=== PATIENT | male | born 1980 | race Caucasian/White ===

== ENCOUNTER → 2018-03-05 | Outpatient (CLI) | payer OTHER ==
[2018-03-05 18:15] LABS: T4, Free (Free Thyroxine) 0.7 ng/dL (0.78-2.19)
--- NOTE | 2018-03-05 19:22 | US ---
EXAMINATION TYPE: US thyroid st tissue head/neck DATE OF EXAM: 03/05/2018 COMPARISON: NONE CLINICAL HISTORY: R07.0 PAIN IN THROAT. GLAND SIZE: Right Lobe: 4.9 x 1.7 x 1.6 cm Overall Parenchyma: homogenous Left Lobe: 4.2 x 1.6 x 1.6 cm Overall Parenchyma: homogeneous Isthmus Thickness: 0.4 cm NODULES RIGHT: # of nodules measured on right: 0 LEFT: # of nodules measured on left: 0 ISTHMUS: # of nodules measured in the isthmus: 0 Bilateral neck scanned, no evidence of lymphadenopathy. IMPRESSION: 1. Normal thyroid scan. No suspicious nodules are evident.
[2018-03-06 02:07] LABS: Thyroid Peroxidase Antibodies 3556.5 U/mL (0.0-60.0)
== END | disposition home or self-care (01) ==
LOC: RADUSWWP 16:18
PROVIDERS: ATTEND Family Medicine
DX: R07.0 Pain in throat (principal); E06.9 Thyroiditis, unspecified; Z82.49 Family history of ischemic heart disease and other diseases of the circulatory system
CPT/HCPCS: 36415; 76536; 84432; 84439; 84443; 84481; 86376; 86800

== ENCOUNTER → 2018-03-18 | Outpatient (CLI) | payer OTHER ==
--- NOTE | 2018-03-18 18:12 | EST ---
EXERCISE STRESS DATE OF STUDY: 03/18/2018 INDICATION FOR STUDY: Chest pain. Abnormal EKG. AGE: 37 SEX: Male. HT: 70" WT: 220 pounds. PROTOCOL: Nader. STAGE: 4 DURATION OF EXERCISE: 10 minutes. HEART RATE REST: 64 BLOOD PRESSURE REST: 130/85 MAXIMUM HEART RATE ACHIEVED: 157 MAXIMUM BLOOD PRESSURE: 202/89 85% MPHR: 156 100% MPHR: 184 METS: 11.7 CLINICAL INFORMATION: STRESS DATA: Pre-testing physical examination showed a heart rate of 64, pressure 130/85 mmHg. Baseline EKG showed sinus mechanism. The patient exercised on the treadmill according to Nader protocol for a total of 10 minutes and achieved 11.7 METS. Maximum heart rate was 157, which is about 85% of maximum predicted heart rate. Maximum blood pressure was 202/89 mmHg. Clinically the patient did not have any symptoms of chest pain or discomfort during the testing or on recovery. The EKG did not show any significant ST or T-wave abnormalities consistent with ischemia. CONCLUSION: 1. Excellent exercise capacity. 2. Normal EKG in response to exercise. 3. Essentially normal stress test for the patient. MMODL / IJN: [id number] /
== END | disposition home or self-care (01) ==
LOC: RADNMMAIN 11:14
PROVIDERS: ATTEND Internal Medicine
DX: Z13.6 Encounter for screening for cardiovascular disorders (principal); Z82.49 Family history of ischemic heart disease and other diseases of the circulatory system
CPT/HCPCS: 93017

== ENCOUNTER 2021-03-16 15:00 | Emergency (ER) | payer OTHER ==
[2021-03-16 15:16] VITALS: BP 145/88; PULSE 89; RESP 18; TEMP 98.4
[2021-03-16] MEDS ORDERED: HYDROcodone/APAP 5-325MG 1 EACH TAB PO STA (15:27)
--- NOTE | 2021-03-16 15:35 | ED ---
Lower Extremity Injury HPI - General Chief Complaint: Extremity Injury, Lower Stated Complaint: L Leg Injury Time Seen by Provider: 03/16/21 15:20 Source: patient, RN notes reviewed Mode of arrival: wheelchair Limitations: physical limitation - History of Present Illness Initial Comments: 40-year-old white male, alert and oriented 4, presents with his to the emergency room with complaints of being hit with a large tree branch while trying to cut it down. Patient states the branch swung around and hit him in the left leg and ankle. Patient also has an abrasion to his left lateral lower leg. Patient states was able to ambulate for a few steps with increasing pain. Patient denies any other medical problems. Denies smoking or drinking on a daily basis. No drug use. MD Complaint: leg injury, ankle injury -: hour(s) (2) Injury: Leg: Left (lower, mid), Ankle: Left Type of Injury: blunt (hit with large swinging tree branch) Place: home Severity: severe (with movement or palpation) Severity scale (1-10): 10 Improves With: immobilization, rest Worsens With: movement, palpation Context: direct blow Associated Symptoms: swelling, able to partially bear weight Treatments Prior to Arrival: cold therapy - Related Data Previous Rx's Medication Instructions Recorded Ciprofloxacin HCl [Cipro] 500 mg PO Q12HR #20 day 07/08/16 Hydrocodone/Acetaminophen [Sturbridge 1 each PO Q6HR PRN #20 tab 07/08/16 5-325] Ondansetron Odt [Zofran ODT] 4 mg PO Q8HR PRN #15 tab 07/08/16 metroNIDAZOLE [Flagyl] 500 mg PO TID 7 Days tab 07/08/16 HYDROcodone/APAP 5-325MG [Sturbridge 1 tab PO Q4HR PRN 3 Days #18 tab 03/16/21 5-325] Allergies Allergy/AdvReac Type Severity Reaction Status Date / Time No Known Allergies Allergy Verified 03/16/21 15:12 Review of Systems ROS Statement: Those systems with pertinent positive or pertinent negative responses have been documented in the HPI. ROS Other: All systems not noted in ROS Statement are negative. Past Medical History Past Medical History: No Reported History History of Any Multi-Drug Resistant Organisms: None Reported Past Surgical History: No Surgical Hx Reported Past Psychological History: No Psychological Hx Reported Smoking Status: Never smoker Past Alcohol Use History: Occasional Past Drug Use History: None Reported General Exam Limitations: physical limitation General appearance: alert, in no apparent distress Head exam: Present: atraumatic, normocephalic, normal inspection Eye exam: Present: normal appearance, PERRL, EOMI. Absent: scleral icterus, conjunctival injection, periorbital swelling ENT exam: Present: normal exam, normal oropharynx, mucous membranes moist Neck exam: Present: normal inspection, full ROM. Absent: tenderness, meningismus, lymphadenopathy, thyromegaly Respiratory exam: Present: normal lung sounds bilaterally. Absent: respiratory distress, wheezes, rales, rhonchi, stridor, chest wall tenderness, accessory muscle use, decreased breath sounds Cardiovascular Exam: Present: regular rate, normal rhythm, normal heart sounds. Absent: systolic murmur, diastolic murmur, rubs, gallop, clicks GI/Abdominal exam: Present: soft, normal bowel sounds. Absent: distended, tenderness, guarding, rebound, rigid Left Hip exam: Present: full ROM Upper Leg exam: Present: full ROM Knee exam: Present: normal inspection, full ROM. Absent: tenderness, swelling, laceration, effusion Lower Leg exam: Present: tenderness, swelling, abrasion. Absent: deformity Ankle exam: Present: tenderness, swelling Foot/Toe exam: Present: full ROM. Absent: laceration, deformity Neurovascular tendon exam: Present: no vascular compromise. Absent: pulse deficit, abnormal cap refill, sensory deficit, extremity cold to touch, pallor, abnormal 2-point discrimination, decreased fine/light touch, foot drop, significant pain with passive ROM of distal joint Back exam: Present: normal inspection, full ROM. Absent: tenderness, CVA tenderness (R), CVA tenderness (L) Neurological exam: Present: alert, oriented X3, CN II-XII intact Psychiatric exam: Present: normal affect, normal mood Skin exam: Present: warm, dry, intact, normal color. Absent: rash Course Vital Signs 03/16/21 15:13 Temperature 98.4 F Pulse Rate 89 Respiratory 18 Rate Blood Pressure 145/88 O2 Sat by Pulse 97 Oximetry Procedures - Orthopedic Splinting/Casting Injury #1 Side: left Lower Extremity Injury Location: short leg, ankle Lower Extremity Immobilizer: posterior splint, stirrup splint, synthetic pre- padded splint Medical Decision Making - Medical Decision Making left Medial malleolar fracture mildly displaced, no other fractures identified. Patient reports some pain relief with immobilization and Sturbridge. Neurovascularly intact after splint applied. Disposition Clinical Impression: Medial malleolar fracture Disposition: HOME SELF-CARE Condition: Good Instructions (If sedation given, give patient instructions): Leg Fracture (ED), Splint Care (ED) Additional Instructions: Follow-up with orthopedics in the next 7 days, take medication as needed for pain. Motrin [id number] as directed. Keep splint in place until seen by orthopedics. Return if any numbness, tingling, or increased pain Prescriptions: HYDROcodone/APAP 5-325MG [Sturbridge 5-325] 1 tab PO Q4HR PRN 3 Days #18 tab PRN Reason: Pain Is patient prescribed a controlled substance at d/c from ED?: Yes When asked, does pt state using other controlled substances?: No If prescribed controlled substance>3 days was MAPS reviewed?: Prescribed <3 Days If opioid is for acute pain is fill amount 7 days or less?: Yes If Rx opioid, was Start Talking consent form obtained?: Yes Referrals: Teena Kyle MD [STAFF PHYSICIAN] - 1-2 days Yaya Hunter DO [Doctor of Osteopathic Medicine] - 1-2 days Time of Disposition: 17:05
--- NOTE | 2021-03-16 16:01 | XR ---
Left leg and left ankle HISTORY: Trauma and pain Frontal and lateral views of the left leg on 3 images, 3 views the left ankle, no comparisons There is a mildly displaced medial malleolar fracture, associated soft tissue swelling. No evident di slocation. There is a plantar calcaneal spur. IMPRESSION: Medial malleolar fracture is mildly displaced.
== END 2021-03-16 17:20 | disposition home or self-care (01) ==
LOC: EC 15:00
DX: S82.52XA Displaced fracture of medial malleolus of left tibia, initial encounter for closed fracture (principal); W22.8XXA Striking against or struck by other objects, initial encounter
CPT/HCPCS: 29515; 99283

== ENCOUNTER 2022-02-21 09:16 | Day surgery (SDC) | payer OTHER ==
[2022-02-19 16:14] VITALS: BMI 30.1
[~2022-02-21 09:16] MED LIST: LACTATED RINGERS 1,000 ML IV SCH; LIDOCAINE 1% (10MG/ML) FOR IV START INTRADERMA PRN
[2022-02-21 10:17] VITALS: RESP 16; TEMP 97.8
[2022-02-21] MEDS ORDERED: PROPOFOL 10 MG/ML 20 ML VIAL IV ONE (11:15)
--- NOTE | 2022-02-21 11:19 | P.GSHP ---
History of Present Illness H&P Date: 02/21/22 Chief Complaint: History of colon polyps This a 41-year-old male who's had previous history of colon polyps. Patient had. His colonoscopy approximately 5 years ago. This was then another institution. Patient states he polyps that time. Anus GI complaints. Past Medical History Past Medical History: GERD/Reflux Additional Past Medical History / Comment(s): frequent, loose stools, intermittent abd. pain History of Any Multi-Drug Resistant Organisms: None Reported Past Surgical History: Orthopedic Surgery Additional Past Surgical History / Comment(s): ORIF left ankle area Past Anesthesia/Blood Transfusion Reactions: No Reported Reaction Smoking Status: Never smoker Medications and Allergies Home Medications Medication Instructions Recorded Confirmed Type Omeprazole [PriLOSEC] 20 mg PO BID 02/19/22 02/21/22 History Allergies Allergy/AdvReac Type Severity Reaction Status Date / Time No Known Allergies Allergy Verified 02/21/22 10:10 Surgical - Exam Vital Signs Temp Pulse Resp BP Pulse Ox 97.8 F 63 16 130/81 96 02/21/22 10:16 02/21/22 10:16 02/21/22 10:16 02/21/22 10:16 02/21/22 10:16 - General well developed, well nourished, no distress - Eyes PERRL - ENT normal pinna - Neck no masses - Respiratory normal expansion - Cardiovascular Rhythm: regular - Abdomen Abdomen: soft, non tender Assessment and Plan Assessment: History of colon polyps. We'll perform colonoscopy.
--- NOTE | 2022-02-21 11:32 | P.OP ---
Date of Procedure: 02/21/22 Preoperative Diagnosis: History of colon polyps Postoperative Diagnosis: Normal colon Procedure(s) Performed: Colonoscopy Anesthesia: MAC Surgeon: Yang Benavidez Pathology: none sent Condition: stable Disposition: PACU Description of Procedure: Patient's placed on the endoscopy table in the lateral position. He received IV sedation. Digital rectal exam was performed. This revealed no normality's. The prostate was symmetric without nodules. The flexible colonoscope was then placed patient anus and passed throughout the entire colon. The ileocecal valve was visualized. Cecum, ascending and transverse colon appeared normal. The descending and sigmoid colon appeared normal. There were no polyps seen throughout the colon. Scope was brought back the rectum. This appeared normal. Scope withdrawn for patient.
[2022-02-21] MEDS ORDERED: IV FLUID CONTINUATION 1,000 ML IV ONE (11:34)
[2022-02-21 11:49] VITALS: BP 110/79; PULSE 60
== END 2022-02-21 12:17 | disposition home or self-care (01) ==
LOC: ORWHC2ENDO 09:16
PROVIDERS: ATTEND Surgery
DX: R19.7 Diarrhea, unspecified (principal); R10.9 Unspecified abdominal pain; Z86.010 Personal history of colon polyps; K21.9 Gastro-esophageal reflux disease without esophagitis; Z79.899 Other long term (current) drug therapy
CPT/HCPCS: 45378; J2704

== ENCOUNTER → 2022-10-09 | Outpatient (CLI) | payer OTHER ==
--- NOTE | 2022-10-09 13:06 | MR ---
EXAMINATION TYPE: MR shoulder LT wo con DATE OF EXAM: 10/09/2022 11:02 AM COMPARISON: NONE HISTORY: Pain Lt shoulder TECHNIQUE: Multiplanar multispin echo imaging of the left shoulder was performed. FINDINGS: Rotator cuff : There is thickening and heterogeneity of the supraspinatus tendon compatible with mild chronic tendinopathy. There is no complete or bursal/articular sided partial rotator cuff tear. The subscapularis constituent of the rotator cuff is intact. Bursa: No bursal effusion or thickening is seen. Musculature: There is no muscular tear, contusion, or atrophy. Acromioclavicular joint : Small subacromial spur is noted without significant impingement. There are mild degenerative changes of the acromioclavicular joint. There is no anterior or lateral acromial d ownsloping. Osseous structures : There are no fractures or regions of abnormal bone marrow signal intensity. Long biceps tendon : The biceps tendon is normally situated within the bicipital groove. No complete or partial biceps tendon tear is present. Glenohumeral Joint fluid : There is no glenohumeral joint effusion. Cartilage and Bone : No focal hyaline cartilage defects are noted. No Hill-Sachs, reverse Hill-Sachs, or bony Bankart lesions are seen. Labrum : There are no SLAP or soft tissue Bankart lesions. No paralabral cysts are seen. OTHER FINDINGS : none IMPRESSION: 1. Mild chronic tendinopathy of the supraspinatus tendon.
== END | disposition home or self-care (01) ==
LOC: RADMRIMAIN 10:30
PROVIDERS: ATTEND Orthopaedic Surgery
DX: M75.42 Impingement syndrome of left shoulder (principal); M25.512 Pain in left shoulder; M62.81 Muscle weakness (generalized)

== ENCOUNTER → 2023-11-18 | Outpatient (CLI) | payer OTHER ==
[2023-11-18 13:01] LABS: INR 0.9 (<1.2); Partial Thromboplastin Time 24.8 sec (22.0-30.0)
--- NOTE | 2023-11-18 13:29 | XR ---
EXAMINATION TYPE: XR chest 2V DATE OF EXAM: 11/18/2023 12:34 PM CLINICAL INDICATION:Male, 43 years old with history of Z01.818 PRE OP; H COMPARISON: None TECHNIQUE: XR chest 2V Frontal and lateral views of the chest. FINDINGS: Lungs/Pleura: There is no evidence of pleural effusion, focal consolidation, or pneumothorax. Pulmonary vascularity: Unremarkable. Heart/mediastinum: Cardiomediastinal silhouette is unremarkable. Musculoskeletal: No acute osseous pathology. IMPRESSION: No acute cardiopulmonary disease/process.
[2023-11-18 15:28] LABS: Blood Urea Nitrogen 13.9 mg/dL (9.0-27.0); Calcium 10.1 mg/dL (8.7-10.3); Carbon Dioxide 26.3 mmol/L (21.6-31.8); Chloride 102 mmol/L (96-109); Glucose 125 mg/dL (70-110); Sodium 141 mmol/L (135-145)
[2023-11-18 15:34] LABS: Basophils # (A) 0.04 X 10*3/uL (0.00-0.10); Basophils % (A) 0.4 %; Eosinophils # (A) 0.16 X 10*3/uL (0.04-0.35); Eosinophils % (A) 1.6 %; HCT 45.1 % (39.6-50.0); HGB 16.2 g/dL (13.0-17.0); Lymphocytes # (A) 1.65 X 10*3/uL (0.90-5.00); MCH 30.3 pg (27.0-32.0); MCHC 35.9 g/dL (32.0-37.0); MCV 84.3 FL (80.0-97.0); Mean Platelet Volume 10.1 FL (9.5-12.2); Monocytes % (A) 5.8 %; NRBC Per 100 WBC 0 X 10*3/uL (0.00-0.01); Neutrophils # (A) 7.78 X 10*3/uL (1.80-7.70); Neutrophils % (A) 75.6 %; Platelet Count 280 X 10*3/uL (140-440); RBC 5.35 X 10*6/uL (4.40-5.60); RDW 11.9 % (11.5-14.5); WBC 10.29 X 10*3/uL (4.50-10.00)
[2023-11-18 15:56] LABS: Appearance,Urine Clear (Clear); Bilirubin,Urine Negative (Negative); Blood,Urine Negative (Negative); Color,Urine Yellow (Yellow); Ketones,Urine Negative (Negative); Nitrite,Urine Negative (Negative); PH, Urine 6.5
== END | disposition home or self-care (01) ==
LOC: LABPAT 11:18
PROVIDERS: ATTEND Orthopaedic Surgery Orthopaedic Surgery of the Spine
DX: Z01.818 Encounter for other preprocedural examination (principal); M43.16 Spondylolisthesis, lumbar region
CPT/HCPCS: 71046; 80048; 81003; 85025; 85610; 85730; 86850; 86900; 86901; 87070; 93005

== ENCOUNTER 2023-11-26 06:18 | Observation (INO) | payer OTHER ==
[~2023-11-26 06:18] MED LIST changes: -LACTATED RINGERS 1,000 ML IV SCH; -LIDOCAINE 1% (10MG/ML) FOR IV START INTRADERMA PRN; +ceFAZolin 1,000 MG in SODIUM CHLORIDE 0.9% IRRIGATIO 1,000 ML IRRIGATION PRN
[2023-11-26] MEDS ORDERED: LIDOCAINE 1% (10MG/ML) FOR IV START INTRADERMA PRN (06:30)
[2023-11-26] MEDS ORDERED: ONDANSETRON 4 MG/2 ML VIAL IVP ONE (06:30)
[2023-11-26] MEDS: LACTATED RINGERS 1,000 ML IV SCH (07:13)
[2023-11-26] MEDS ORDERED: ROCURONIUM 10 MG/ML (5 ML VIAL) IV ONE (07:35)
[2023-11-26] MEDS ORDERED: NEOSTIGMINE 1 MG/ML 10 ML VIAL ONE (07:35)
[2023-11-26] MEDS ORDERED: PROPOFOL 10 MG/ML 20 ML VIAL IV ONE (07:35)
[2023-11-26] MEDS ORDERED: GLYCOPYRROLATE 0.2 MG/ML 2 ML VIAL ONE (07:35)
[2023-11-26] MEDS ORDERED: MIDAZOLAM 2 MG/2 ML VIAL ONE (07:35)
[2023-11-26] MEDS ORDERED: fentaNYL (PF) 50 MCG/ML 2 ML AMP ONE (07:35)
[2023-11-26] MEDS ORDERED: PHENYLEPHRINE 10 MG/ML VIAL ONE (07:35)
[2023-11-26] MEDS ORDERED: SUCCINYLCHOLINE CHLORIDE 200 MG/10 ML VIAL IV ONE (07:35)
[2023-11-26] MEDS ORDERED: LIDOCAINE 1% INJ 10MG/ML (20 ML MDV) ONE (07:35)
[2023-11-26] MEDS ORDERED: SUGAMMADEX SODIUM 200 MG/2 ML SDV IV ONE (07:35)
[2023-11-26] MEDS ORDERED: THROMBIN (BOVINE) 5,000 UNIT VIAL MISCELLANE ONE (08:09)
[2023-11-26] MEDS ORDERED: GELATIN SPONGE,ABSORB (LARGE) 1 EACH SPONGE MISCELLANE ONE (08:09)
[2023-11-26] MEDS ORDERED: BUPIVACAINE (PF) 0.25% 10 ML VIAL SQ ONE (08:09)
[2023-11-26] MEDS ORDERED: LIDOCAINE 2%-EPI 1:100,000 20 ML VIAL SQ ONE (08:09)
[2023-11-26] MEDS ORDERED: LACTATED RINGERS 1,000 ML IV ONE (10:15)
[2023-11-26] MEDS ORDERED: MAGNESIUM HYDROXIDE 2,400 MG/30 ML CUP PO PRN (10:34)
[2023-11-26] MEDS ORDERED: HYDROcodone/APAP 5-325MG 1 EACH TAB PO PRN ×2 (10:34→10:36)
[2023-11-26] MEDS ORDERED: BENZOCAINE/MENTHOL LOZENG 1 EACH LOZENGE MUCOUS MEM PRN (10:34)
[2023-11-26] MEDS ORDERED: HYDROmorphone 0.5 MG/0.5 ML SYRINGE IVP PRN (10:34)
[2023-11-26] MEDS ORDERED: ONDANSETRON 4 MG/2 ML VIAL IVP PRN (10:34)
--- NOTE | 2023-11-26 10:43 | P.OP ---
Date of Procedure: 11/26/23 Preoperative Diagnosis: Dynamic spondylolisthesis L4 5, degenerative disc disease L4 5, spondylolysis L4 5, foraminal stenosis L4 5, lower extremity radiculopathy, low back pain, failed conservative treatment Postoperative Diagnosis: Name Pathology: none sent Condition: stable Disposition: PACU Description of Procedure: DESCRIPTION OF PROCEDURE(S): BRIEF OPERATIVE NOTE Preoperative Diagnosis: Dynamic spondylolisthesis L4 5, degenerative disc disease L4 5, spondylolysis L4 5, foraminal stenosis L4 5, lower extremity radiculopathy, low back pain, failed conservative treatment Postoperative Diagnosis: Same Procedure: Laminectomy and decompression L4 [address] navigation aided Minimally invasive Posterior lateral decompression and fusion L4 5 Minimally invasive Transforaminal lumbar interbody fusion for a 360 fusion L4 5 Discectomy for decompression L4 5 Placement of interbody graft L4 5 Use of computer navigation for fusion in placement of the pedicle screws bilaterally and monitoring position pedicle screw placement Local autogenous bone grafting Aspiration of bone marrow from the vertebral body pedicle at L4 on the right Use of bone graft extenders Surgeon: Dr. Verma [employer] Service Representative: Ismael SEAY who is present throughout the entire the case persistence during positioning, dissection, exposure, visualization, and all crucial elements of the case as well as closure. Anesthesia: General anesthesia per Dr. Whitehead Estimated blood loss: Approximately 150 mL Complications: None apparent Components implanted: K2M minimally invasive [place] pedicle screw system withscrews measuring 6.5 mm in diameter to rods one expandable interbody cage with 10 mL of osteo amp bio4 bone graft substitute and 30 mL of the BX bone fibers to supplement the local autogenous bone graft and bone marrow aspirate Disposition: To recovery room in good stable condition. OPERATIVE INDICATIONS The patient has had severe issues at their lower extremity in her lower back over the past several years with significant worsening over the past several months. Over the past few months the patient had pain at their back and their lower extremities. The patient is having severe radicular symptoms at their lower extremity with weakness. The patient is having significant pain in their back. They are unable to obtain any comfort. Having worsening limitations with his activity and his work due to his pain at his back. We did aggressive conservative treatment with medications therapy and interventional pain management however thery were not having any relief. The patient also showed evidence of a listhesis with some dynamic instability at L4 5. The patient has been through conservative treatment. We discussed various treatment options including surgery, and the patient wishes to proceed with surgery We discussed the risk, patient's alternatives and benefits of surgery including but not limited to, risk of bleeding risk of infection, risk of need for further surgery, risk of decreased, loss of motion, muscle function, malunion nonunion, hardware failure, nerve damage, paralysis, heart attack, blindness and . They understood issues with the current pandemic and the possibility of exposure. OPERATIVE SUMMARY After discussing all the risks, patient alternatives and benefits at length, the patient elected to proceed with surgical intervention, signed informed consent, and presented for their procedure. The patient was seen and examined in the preoperative holding area and the surgical site was marked. The patient was given antibiotics and brought to the operating room. The patient was sedated and intubated by anesthesia in standard fashion. The patient was positioned on to the operating room table in a prone position on the appropriate frame which was well-padded and well molded. We were careful to pad any bony prominences and pressure points. We were careful to maintain the patient's cervical spine and good neutral alignment and position throughout. The patient was prepped and draped in a normal standard fashion. An appropriate timeout and keystone protocol performed. We were able to proceed with the surgery. The local wound area was infiltrated with local anesthetic. Over the right iliac crest I was able to make small stab incisions and establish a guidepin screw fixation to the iliac crest 2. I was able place the computer referencing device over the guidepins to establish an appropriate reference point for the Ziem CT navigation. We then were able to place patient in an appropriate drape and do a navigation spin for visualization and 3-D reconstruction of the lumbar spine. I was able utilize C-arm guidance and navigation to establish appropriate position over the pedicles bilaterally at the appropriate levels . With the appropriate levels confirmed was able to make small incisions over the appropriate pedicle sites bilaterally. Utilizing the computer navigation device I was able to establish bony landmarks at the right iliac crest for a bony reference point for the navigation device. I was able to establish a Jamshidi needle over the lateral aspect of the pedicle and advanced the trocar into the pedicle being careful not to breech superiorly inferiorly medially or laterally using computer navigation device. Position was confirmed regularly with AP and lateral images on C-arm and with the computer navigation device at the appropriate levels bilaterally. I was able to establish the trocar into the pedicle appropriately into the posterior aspect of the vertebral body bilaterally at the appropriate levels. This was done at each of the ped icle positions and each of the vertebrae. At the superior vertebrae of L4 on the right I was able to take approximately 15 mL of bone aspiration for use later in the case to supplement the allograft and autograft bone. I was able place the guidewire into the trocar and into the vertebral body appropriately under C-arm guidance. Dissection was taken down over the wire to the appropriate starting position for the screw placed. The appropriate length screw was chosen, threaded over the guidewire and screwed appropriately into the pedicle and vertebral body under C-arm guidance in excellent alignment and position with good bony purchase. This is done at each of the screw sites at the appropriate levels at L4 and L5 bilaterally. With the screws intact I extended the incision to connect the screw hole sites on the most symptomatic side on the right. I dissected down to establish access over the pars and lamina to the base of the spinous process. I was able to expose the facet joint. The capsule the facet was taken down and showed some facet arthrosis at the joint. I was able to use a combination of curettes and Kerrison rongeurs and a high-speed drill to take down the facet joint and do a facetectomy. I was able get excellent foraminal decompression and central decompression with undermining across midline to perform a laminectomy centrally and contralaterally. As able get good central decompression. The ligamentum flavum was taken down to further decompress centrally and at bilateral neural foramen. I was able to expose the disc space and visualize the traversing nerve root. Note was made of some disc protrusion and disc herniation that was abutting the traversing nerve root at the level causing further compression of the nerve root. I was able to establish a annulotomy at the appropriate level protecting soft tissue and neural structures. Note was made of some disc desiccation at the disc. There is protrusion of the disc well contribute being to the stenosis. I performed a complete discectomy with accommodation of curettes and rasps and scrapers. I was able get good endplate preparation at the disc space. I sized for the appropriate size interbody spacer protecting the soft tissue and neural structures. The wound was copiously irrigated and suctioned dry. There is no evidence of any dural tear or leak. I was able to pack the disc space with local autogenous bone graft as well as a small amount of bone graft which was also placed into the interbody cage itself. Protecting the soft tissue structures and neural structures I was able place the interbody cage in good alignment and good position with good fit and fill at the interbody space. Position was confirmed with C-arm guidance. We had seen the skin reduction of the listhesis and good alignment at L4 5. I was able to visualize the interbody spacer and it was well seated without any protrusion posteriorly with the canal. Good hemostasis maintained. There is no evidence of any dural tear or leak. The wound was irrigated and suctioned dry. With the hardware intact, intraoperative C-arm imaging was again taken which showed good alignment and position of the hardware at the appropriate levels. We were then able to measure, contour and place the rods and appropriate hardware bilaterally at L4 and L5. I was able to place capcrews, tighten them down, and torque them with the torque screwdriver appropriately. With this intact I was able to place the local autogenous bone graft with additional bone graft enhancer as necessary into the posterior lateral gutters over the decorticated transverse processes and facet joints on the contralateral side. The remainder of the bone graft was placed over the facet joint on the contralateral side after taking down the facet joint capsule. I was able to expose the base of the pedicles and treasures processes for decortication at L4 5 on the left as well to place posterior bone graft for fusion. With the bone graft intact, a stable construct, and good decompression at the appropriate levels, we were able to proceed with closure. Good hemostasis was maintained. There is no evidence of dural tear or leak. The fascia was closed for a watertight closure. he subcuticular tissue was closed with absorbable suture. The wound was cleaned and dried and dressed with the appropriate dressing. The drapes were broken down. The patient was gently rolled back onto their hospital bed being careful to maintain their cervical spine and good neutral alignment and position. They were woken up by anesthesia, extubated, and brought to the recovery room in good stable condition. The patient will be admitted to the hospital for appropriate postoperative care, medical management and monitoring. We will continue to follow them closely about the postoperative course.
[2023-11-26] MEDS: fentaNYL (PF) 50 MCG/ML 2 ML AMP IV PRN ×2 (10:52→11:03)
[2023-11-26] MEDS ORDERED: HYDROmorphone 0.5 MG/0.5 ML SYRINGE IVP ONE ×3 (11:31→12:47)
--- NOTE | 2023-11-26 13:07 | FL ---
EXAMINATION TYPE: FL guidance operating room DATE OF EXAM: 11/26/2023 10:35 AM CLINICAL INDICATION:Male, 43 years old with history of LUMBAR FUSION; [facility] COMPARISON: None TECHNIQUE: FL guidance operating room . Fluoroscopic assistance was provided in the operating room. 2 4 seconds fluoroscopy time with a DAP 2578.51. Please refer to operative note for full details. IMPRESSION: Documentation of fluoroscopy.
--- NOTE | 2023-11-26 13:09 | XR ---
EXAMINATION TYPE: XR lumbar spine 2 or 3V DATE OF EXAM: 11/26/2023 10:36 AM CLINICAL INDICATION:Male, 43 years old with history of LUMBAR FUSION; [facility] COMPARISON: None TECHNIQUE: Fluoroscopic guidance was provided during lumbar fusion in the operating room. No images a re provided. 24 seconds fluoroscopy time with a DAP 2578.51. Please refer to operative note for full details. IMPRESSION: Documentation of fluoroscopy.
[2023-11-26] MEDS: HYDROmorphone 1 MG/ML 1 ML SYRINGE IVP PRN ×4 (14:47→22:24)
[2023-11-26] MEDS: diazePAM 5 MG TAB PO PRN ×2 (14:47→22:25)
[2023-11-26] MEDS: SODIUM CHLORIDE 0.9% 1,000 ML IV SCH (15:12)
[2023-11-26] MEDS: CYCLOBENZAPRINE 10 MG TAB PO PRN ×2 (15:49→20:50)
[2023-11-26] MEDS: PANTOPRAZOLE 40 MG TABLET PO SCH (19:37)
[2023-11-26] MEDS: HYDROcodone/APAP 5-325MG 1 EACH TAB PO PRN (20:50)
[2023-11-27] MEDS: HYDROcodone/APAP 5-325MG 1 EACH TAB PO PRN ×4 (00:58→16:06)
[2023-11-27] MEDS: SODIUM CHLORIDE 0.9% 1,000 ML IV SCH ×2 (02:06→20:00)
[2023-11-27] MEDS: LACTATED RINGERS 1,000 ML IV SCH (02:17)
[2023-11-27] MEDS: HYDROmorphone 1 MG/ML 1 ML SYRINGE IVP PRN ×6 (02:28→19:07)
[2023-11-27] MEDS: diazePAM 5 MG TAB PO PRN ×2 (04:36→10:09)
[2023-11-27] MEDS: CYCLOBENZAPRINE 10 MG TAB PO PRN ×3 (06:23→20:07)
[2023-11-27 09:06] LABS: BUN/Creat Ratio 14.73 Ratio (12.00-20.00); Blood Urea Nitrogen 16.2 mg/dL (9.0-27.0); Chloride 100 mmol/L (96-109); Glucose 115 mg/dL (70-110); Potassium 4.2 mmol/L (3.5-5.5); Sodium 137 mmol/L (135-145)
[2023-11-27 09:07] LABS: Calcium 8.8 mg/dL (8.7-10.3); Carbon Dioxide 24.7 mmol/L (21.6-31.8)
[2023-11-27 09:26] LABS: HCT 38.8 % (39.6-50.0); HGB 13.2 g/dL (13.0-17.0); MCH 29.9 pg (27.0-32.0); Mean Platelet Volume 10.1 FL (9.5-12.2); NRBC Per 100 WBC 0 X 10*3/uL (0.00-0.01); Platelet Count 231 X 10*3/uL (140-440); RBC 4.41 X 10*6/uL (4.40-5.60); RDW 12.7 % (11.5-14.5); WBC 12.92 X 10*3/uL (4.50-10.00)
[2023-11-27 09:57] LABS: Basophils # (A) 0.03 X 10*3/uL (0.00-0.10); Basophils % (A) 0.2 %; Eosinophils # (A) 0.04 X 10*3/uL (0.04-0.35); Eosinophils % (A) 0.3 %; Lymphocytes # (A) 1.12 X 10*3/uL (0.90-5.00); Lymphocytes % (A) 8.7 %; Monocytes # (A) 1.67 X 10*3/uL (0.20-1.00); Monocytes % (A) 12.9 %; Neutrophils # (A) 9.98 X 10*3/uL (1.80-7.70); Neutrophils % (A) 77.3 %; RBC Morphology Normal (Normal)
[2023-11-27] MEDS: PANTOPRAZOLE 40 MG TABLET PO SCH ×2 (10:09→20:07)
[2023-11-27] MEDS: SENNOSIDES-DOCUSATE SODIUM 1 EACH TAB PO SCH (10:09)
[2023-11-27] MEDS: FLUTICASONE 50MCG/SPRAY NASAL 16GM EA NOSTRIL SCH (10:34)
--- NOTE | 2023-11-27 10:35 | P.PN ---
Progress Note - Text Progress Note Date: 11/27/23 Postoperative day #1 Patient is seen and examined today at bedside. The patient has some pain around the surgical site as expected. Pain is being controlled with medication. He is up in a chair and has walked in the hallway with a walker. His tolerating his regular diet. His Amador is out but is not yet urinated on his own Physical Exam Afebrile with stable vital signs Abdomen is soft nontender. Chest has good excursion deep and space expiration The incision site is clean dry and intact. No erythema there is no purulence. There is no active drainage Extremities have not had neurologic change from prior to surgery. He has sustained a/plantar flexion and EHL intact Calves and thighs were soft nontender without evidence of DVT. Assessment/Plan Postoperative day #1 status post minimally invasive decompression and fusion L4 5 for his spondylolisthesis with stenosis lower extremity radiculopathy and back pain Patient is progressing as expected from the surgery. We will continue to increase the patient's mobilization with therapy. He seems to be making good progress. He still needs to void since his catheter was discontinued. He is not sure if he'll be able to go home today and will likely be able to go home in the morning once were able to be sure that his pain medicine is controlling his pain adequately with orals We will continue pain control with oral or IV medications. We'll continue to follow patient closely.
[2023-11-28] MEDS: HYDROcodone/APAP 5-325MG 1 EACH TAB PO PRN ×5 (00:30→23:10)
[2023-11-28] MEDS: diazePAM 5 MG TAB PO PRN ×3 (00:30→19:12)
[2023-11-28] MEDS: HYDROmorphone 1 MG/ML 1 ML SYRINGE IVP PRN (02:56)
[2023-11-28] MEDS: SODIUM CHLORIDE 0.9% 1,000 ML IV SCH ×2 (03:47→17:38)
[2023-11-28] MEDS: LACTATED RINGERS 1,000 ML IV SCH (03:56)
[2023-11-28] MEDS: CYCLOBENZAPRINE 10 MG TAB PO PRN ×3 (07:28→20:11)
--- NOTE | 2023-11-28 08:41 | P.DS ---
Providers Date of admission: 11/26/2023 Expected date of discharge: 11/28/23 Attending physician: Vikki Verma Primary care physician: Maurilio Oliveira - Discharge Diagnosis(es) (1) Spondylolisthesis at L4-L5 level Current Visit: Yes Status: Acute (2) Degeneration of L4-L5 intervertebral disc Current Visit: Yes Status: Acute (3) Radicular pain of lower extremity Current Visit: Yes Status: Acute (4) Low back pain Current Visit: Yes Status: Acute (5) S/P lumbar fusion Current Visit: Yes Status: Acute (6) Spondylolysis of lumbar region Current Visit: Yes Status: Acute (7) Foraminal stenosis of lumbar region Current Visit: Yes Status: Acute (8) Lumbar paraspinal muscle spasm Current Visit: Yes Status: Acute Hospital Course: This is a pleasant 43-year-old male who presented with L4-5 dynamic spondylolisthesis with spondylolysis, and degenerative disc disease with foraminal stenosis, low back pain, and lower extremity radiculopathy who failed outpatient conservative therapy. He was admitted for an L4-5 minimally invasive posterior lateral decompression and fusion with transforaminal lumbar interbody fusion. The patient tolerated the procedure well and did well postoperatively. He does have some increased soreness at his lumbar spine surgical sites after increased activities with physical therapy yesterday. He was able to ambulate the hallways with the assistance of a walker. He does have a walker for home use. He denies any lower extremity weakness or radiculopathy bilaterally. He does feel he would be ready for discharge home today. He is voiding without difficulty. He has not had a bowel movement but is passing lots of gas. Condition on day of discharge stable. Patient will be discharged home. Patient was cleared preoperatively for surgery by Dr. Oliveira. Patient currently denies any nausea, vomiting, fever, or chills. Patient may shower Optifoam dressing intact. Patient may remove Optifoam dressing in 3 days and shower without a dressing at that time. Patient should refrain from driving until at least after their first follow-up appointment in the office. Patient should avoid excessive bending, lifting, and twisting; no lifting greater than 10 pounds. MAPS has been previously reviewed. An "Opiod Start Talking" Form has been signed and placed in the patient's chart. A prescription has been written for hydrocodone 7.5 mg/325 mg, 1 tab, every 6 as needed for acute pain, dispensed #28. He is also given prescriptions for cyclobenzaprine 10 mg, 1 tab, 3 times a day, as needed for muscle spasm, dispensed #60, and Senokot-S, 1, twice a day, as needed for constipation, dispensed #60. Should avoid previously prescribed hydrocodone 5 mg/325 mg while taking hydrocodone 7.5 mg/325 mg. Prescription to have been sent to the [facility] pharmacy located within [facility]. He may utilize walker to aid in ambulation as needed. Physical Exam on day of discharge: Patient is awake, alert, and oriented 3 Vital signs stable Good chest excursion with deep inspiration and expiration Abdomen soft nontender No signs or symptoms of DVT; no calf pain Extensor hallucis longus, plantarflexion, and dorsiflexion positive sustained bilateral lower extremities Incision is clean, dry, and intact; no erythema, purulence, or signs of infection Optifoam dressing intact Procedures: L4-5 minimally invasive posterior lateral decompression and fusion with transforaminal lumbar interbody fusion Patient Condition at Discharge: Stable Plan - Discharge Summary Discharge Rx Participant: Yes New Discharge Prescriptions: New Cyclobenzaprine [Flexeril] 10 mg PO TID PRN #60 tab PRN Reason: Muscle Spasm HYDROcodone/APAP 7.5-325MG [[place] 7.5-325] 1 tab PO Q6HR PRN 7 Days #28 tab PRN Reason: Pain Sennosides-Docusate Sodium [Senokot-S] 1 tab PO BID PRN #60 tablet PRN Reason: Constipation No Action Omeprazole [PriLOSEC] 20 mg PO BID HYDROcodone/APAP 5-325MG [[place] 5-325] 1 tab PO Q8H PRN PRN Reason: Pain Cyclobenzaprine [Flexeril] 10 mg PO HS PRN PRN Reason: Muscle Spasm Fluticasone Nasal Leckrone [Flonase Nasal Leckrone] 2 spray EA NOSTRIL DAILY Discharge Medication List Omeprazole [PriLOSEC] 20 mg PO BID 02/19/22 [History] Cyclobenzaprine [Flexeril] 10 mg PO HS PRN 11/20/23 [History] Fluticasone Nasal Leckrone [Flonase Nasal Leckrone] 2 spray EA NOSTRIL DAILY 11/20/23 [History] HYDROcodone/APAP 5-325MG [[place] 5-325] 1 tab PO Q8H PRN 11/20/23 [History] HYDROcodone/APAP 7.5-325MG [[place] 7.5-325] 1 tab PO Q6HR PRN 7 Days #28 tab 11/27/23 [Rx] Cyclobenzaprine [Flexeril] 10 mg PO TID PRN #60 tab 11/28/23 [Rx] Sennosides-Docusate Sodium [Senokot-S] 1 tab PO BID PRN #60 tablet 11/28/23 [Rx] Follow up Appointment(s)/Referral(s): Vikki Verma DO [Doctor of Osteopathic Medicine] - 2 Weeks [facility] [NON-STAFF] - As Needed (walker) Activity/Diet/Wound Care/Special Instructions: Keep site clean. May shower with waterproof Optifoam intact. Do not soak in a tub. After 72 hours postoperatively, patient May remove dressing and then may shower with area uncovered. Leave glue intact and allow it to fray off on its own. May ambulate as tolerated. Avoid heavy or rigorous activity. No repetitive bending twisting or lifting. May utilize walker to aid in ambulation as needed. No overhead work. Discharge Disposition: HOME SELF-CARE
[2023-11-28] MEDS: FLUTICASONE 50MCG/SPRAY NASAL 16GM EA NOSTRIL SCH (09:29)
[2023-11-28] MEDS: PANTOPRAZOLE 40 MG TABLET PO SCH ×2 (09:29→20:11)
[2023-11-28] MEDS: SENNOSIDES-DOCUSATE SODIUM 1 EACH TAB PO SCH (09:29)
[2023-11-28 15:53] VITALS: RESP 18
[2023-11-29] MEDS: diazePAM 5 MG TAB PO PRN (00:23)
[2023-11-29] MEDS: HYDROcodone/APAP 5-325MG 1 EACH TAB PO PRN ×3 (04:51→14:39)
[2023-11-29] MEDS: SODIUM CHLORIDE 0.9% 1,000 ML IV SCH (04:55)
[2023-11-29] MEDS: LACTATED RINGERS 1,000 ML IV SCH (04:56)
[2023-11-29] MEDS: FLUTICASONE 50MCG/SPRAY NASAL 16GM EA NOSTRIL SCH (07:45)
[2023-11-29 08:51] VITALS: BP 106/69; PULSE 80; TEMP 98.6
[2023-11-29] MEDS: PANTOPRAZOLE 40 MG TABLET PO SCH (09:18)
[2023-11-29] MEDS: SENNOSIDES-DOCUSATE SODIUM 1 EACH TAB PO SCH (09:18)
[2023-11-29] MEDS ORDERED: bisacodyL 10 MG SUPP RECTAL STA (09:52)
--- NOTE | 2023-11-29 09:56 | P.DS ---
Providers Date of admission: 11/26/23 Attending physician: Vikki Verma Primary care physician: Maurilio Acuna [facility] Course: The patient presented on the day of admission as per their operative note. He had a dynamic spondylolisthesis L4 5 with lower extremity radiculopathy and low back pain and underwent surgery with decompression fusion as per his operative note. Postoperatively he's been making slow but steady progress. He is mobilizing better. He is voiding freely. He is passing gas well but still not had a bowel movement. He is tolerating his diet well he denies any nausea or abdominal pain. He says the pain in his back is getting better steadily and is controlled with oral medications. Physical Exam The incision site is clean dry and intact. There is no erythema no drainage. There is no purulence no evidence of infection. The incision site is clear without any evidence of drainage or infection Abdomen soft and nontender. There is some mild distention brace nontender. He has positive bowel sounds Chest has good excursion with deep inspiration and expiration. The patient has active and passive range of motion intact at the upper and lower extremities. There is no acute change in neurologic status. He has sustained dorsal some flexion and EHL Hospital Course Postoperative day #3 status post minimally invasive decompression fusion L45 for his dynamic spinal listhesis with lower extremity radiculopathy and low back p ain The patient has been making good progress postoperatively. They have completed the prophylactic antibiotics without any signs or symptoms of infection. The patient has been able to advance their diet, and is tolerating diet adequately. The pain was initially controlled with IV medications and is now controlled appropriately with oral medications. The patient has been able to increase thei r mobilization. He is passing gas well and tolerating his diet. I think his bowels moved better with a Dulcolax suppository this morning. We will order that for him. The patient has progressed appropriately. I think they are in good stable condition for discharge today. They will be sent home with appropriate prescriptions. I answered their questions to the best of my ability in a language that they can understand and they are agreeable with the plan. They will follow up as directed in approximately 2 weeks or sooner if he is having problems. Patient Condition at Discharge: Good Plan - Discharge Summary Discharge Rx Participant: Yes New Discharge Prescriptions: New Cyclobenzaprine [Flexeril] 10 mg PO TID PRN #60 tab PRN Reason: Muscle Spasm HYDROcodone/APAP 7.5-325MG [[place] 7.5-325] 1 tab PO Q6HR PRN 7 Days #28 tab PRN Reason: Pain Sennosides-Docusate Sodium [Senokot-S] 1 tab PO BID PRN #60 tablet PRN Reason: Constipation No Action Omeprazole [PriLOSEC] 20 mg PO BID HYDROcodone/APAP 5-325MG [Warner 5-325] 1 tab PO Q8H PRN PRN Reason: Pain Cyclobenzaprine [Flexeril] 10 mg PO HS PRN PRN Reason: Muscle Spasm Fluticasone Nasal Turner [Flonase Nasal Turner] 2 spray EA NOSTRIL DAILY Discharge Medication List Omeprazole [PriLOSEC] 20 mg PO BID 02/19/22 [History] Cyclobenzaprine [Flexeril] 10 mg PO HS PRN 11/20/23 [History] Fluticasone Nasal Turner [Flonase Nasal Turner] 2 spray EA NOSTRIL DAILY 11/20/23 [History] HYDROcodone/APAP 5-325MG [Warner 5-325] 1 tab PO Q8H PRN 11/20/23 [History] HYDROcodone/APAP 7.5-325MG [War[place] 7.5-325] 1 tab PO Q6HR PRN 7 Days #28 tab 11/27/23 [Rx] Cyclobenzaprine [Flexeril] 10 mg PO TID PRN #60 tab 11/28/23 [Rx] Sennosides-Docusate Sodium [Senokot-S] 1 tab PO BID PRN #60 tablet 11/28/23 [Rx] Follow up Appointment(s)/Referral(s): Vikki Verma DO [Doctor of Osteopathic Medicine] - 12/09/23 1:15 pm [facility] [NON-STAFF] - As Needed (walker) Activity/Diet/Wound Care/Special Instructions: Keep site clean. May shower with waterproof Optifoam intact. Do not soak in a tub. After 72 hours postoperatively, patient May remove dressing and then may shower with area uncovered. Leave glue intact and allow it to fray off on its own. May ambulate as tolerated. Avoid heavy or rigorous activity. No repetitive bending twisting or lifting. May utilize walker to aid in ambulation as needed. No overhead work. Discharge Disposition: HOME SELF-CARE
[2023-11-29] MEDS: CYCLOBENZAPRINE 10 MG TAB PO PRN (14:39)
== END 2023-11-29 15:21 | disposition home or self-care (01) ==
LOC: OR 06:18 → 4SSUR 10:27 → OR 11-28 08:41 → 4SSUR 11-29 15:21 → OR 11-29 15:21
PROVIDERS: ADMIT Orthopaedic Surgery Orthopaedic Surgery of the Spine; ATTEND Orthopaedic Surgery Orthopaedic Surgery of the Spine
DX: M51.16 Intervertebral disc disorders with radiculopathy, lumbar region (principal); M43.16 Spondylolisthesis, lumbar region; M48.061 Spinal stenosis, lumbar region without neurogenic claudication; M62.830 Muscle spasm of back
CPT/HCPCS: 22633; 20930; 22853; 96376 ×3; 96365; 96366; 96375; 97161; 80048; 85025; 72100; G0378 ×4; C1713 ×2; C1762; J2250; J0330; J2710; J0690 ×3; J2405; J2001; J3010; J1170 ×4; J2704; J2371; J0665